=== PATIENT | female | born 1940 | race Caucasian/White ===

== ENCOUNTER 2017-08-12 00:14 | Emergency (ER) | payer MEDICARE ==
[2017-08-12 01:54] LABS: #Basophils 0.1 thou/uL (0.0-0.2); #Eosinphils 0.2 thou/uL (0.0-0.7); #Lymphocytes 2.1 thou/uL (1.20-3.40); #Monocytes 0.9 thou/uL (0.11-0.59); #Neutrophils 6.6 thou/uL (1.40-6.50); %Basophils 1.3 % (0.0-1.0); %Eosinophils 1.6 % (0.0-10.0); %Monocytes 8.8 % (0.0-10.0); %Neutrophils 67.3 % (42.0-75.0); Hemoglobin 10.9 g/dL (12.0-16.0); Mean Corpuscular HGB CONC 33.8 g/dL (32.0-36.0); Mean Corpuscular Hemoglobin 30.1 pg (27.0-31.0); Mean Corpuscular Volume 89.2 fl (81.0-99.0); Platelet Count 182 thou/uL (130-400); Red Blood Cell (RBC) Count 3.62 mill/uL (4.20-5.40); White Blood Cell (WBC) Count 9.8 thou/uL (4.8-10.8)
[2017-08-12 02:03] LABS: Anion Gap 16 mmol/L (10-20); BUN (Urea Nitrogen) 17 mg/dL (9.8-20.1); Calc. Creatinine Clearance 0 mL/min (70-130); Calcium 10.5 mg/dL (7.8-10.44); Carbon Dioxide 24 mmol/L (23-31); Chloride 100 mmol/L (98-107); Estimated GFR-MDRD 66; Glucose 97 mg/dL (83-110); Potassium 3.8 mmol/L (3.5-5.1); Sodium 136 mmol/L (136-145)
[2017-08-12 02:10] LABS: Troponin I 0.281 ng/mL (< 0.028)
--- NOTE | 2017-08-12 09:13 | RAD ---
PORTABLE AP CHEST XRAY: DATE: 08/12/17. HISTORY: Chest pain. COMPARISON: None available. FINDINGS: Dual-lead left subclavian cardiac pacemaking device is noted in place. Vascular calcifications in th e thoracic aorta. Cardiac silhouette and pulmonary vasculature are within normal limits. The lungs are clear. Osseous structures are intact, although there does appear to be a remote fracture involvi ng the posterior right 9th posterior rib. IMPRESSION: No acute cardiopulmonary process. POS: [id number]
== END 2017-08-12 03:47 | disposition left against medical advice (07) ==
LOC: MADERS 00:14
DX: R07.9 Chest pain, unspecified (principal); E78.5 Hyperlipidemia, unspecified; I48.91 Unspecified atrial fibrillation; I10 Essential (primary) hypertension; Z79.899 Other long term (current) drug therapy
CPT/HCPCS: 36415; 71045; 80048; 82553; 83880; 84484; 85025; 93005; 94760

== ENCOUNTER 2019-06-04 13:01 | Emergency (ER) | payer MEDICARE ==
[~2019-06-04 13:01] MED LIST: Sodium Chloride 0.9% 1,000 ML BAG ONE
--- NOTE | 2019-06-04 13:57 | CT ---
CT OF THE BRAIN WITHOUT CONTRAST: 06/04/19 COMPARISON: None. HISTORY: Altered mental status. TECHNIQUE: Multiple contiguous axial images were obtained in a CT of the brain without contrast. FINDINGS: There are scattered hypodensities in the subcortical and periventricular white matter, likely seconda ry to small vessel ischemic disease. No large confluent infarction is seen. There is no evidence of h ydrocephalus, intracranial hemorrhage or extra-axial fluid collections. The calvarium and overlying soft tissues are unremarkable. The visualized paranasal sinuses and masto id air cells are well aerated. IMPRESSION: No evidence of acute intracranial abnormality. POS: EAA
[2019-06-04 14:02] LABS: #Basophils 0.1 thou/uL (0.0-0.2); #Monocytes 1.6 thou/uL (0.11-0.59); #Neutrophils 13.3 thou/uL (1.40-6.50); %Basophils 0.7 % (0.0-1.0); %Eosinophils 0.2 % (0.0-10.0); %Monocytes 9.7 % (0.0-10.0); %Neutrophils 83.4 % (42.0-75.0); Hemoglobin 13.2 g/dL (12.0-16.0); Mean Corpuscular HGB CONC 31.9 g/dL (32.0-36.0); Mean Corpuscular Hemoglobin 29.3 pg (27.0-31.0); Mean Corpuscular Volume 91.8 fL (78.0-98.0); Mean Platelet Volume 7.5 fL (7.4-10.4); Platelet Count 288 thou/uL (130-400); RBC Distribution Width 12.2 % (11.5-14.5); Red Blood Cell (RBC) Count 4.53 mill/uL (4.20-5.40); White Blood Cell (WBC) Count 15.9 thou/uL (4.8-10.8)
[2019-06-04 14:24] LABS: ALT (SGPT) 36 U/L (8-55); AST (SGOT) 23 U/L (5-34); Albumin 4.1 g/dL (3.4-4.8); Alkaline Phosphatase 72 U/L (40-110); Anion Gap 22 mmol/L (10-20); BUN (Urea Nitrogen) 46 mg/dL (9.8-20.1); Bilirubin, Total 0.5 mg/dL (0.2-1.2); Calc. Creatinine Clearance 0 mL/min (70-130); Calcium 10.1 mg/dL (7.8-10.44); Carbon Dioxide 19 mmol/L (23-31); Chloride 110 mmol/L (98-107); Estimated GFR-MDRD 71; Globulin 3.9 g/dL (2.4-3.5); Glucose 103 mg/dL (83-110); Potassium 3.4 mmol/L (3.5-5.1); Sodium 148 mmol/L (136-145)
[2019-06-04 14:25] LABS: Bilirubin Moderate (Negative); Blood, Urine Moderate (Negative); Clarity Clear (Clear); Glucose, Urine (Dipstick) Negative (Negative); Leukocyte Negative (Negative); Nitrite Negative (Negative); Protein, Urine (Dipstick) > or equal to 300 mg/dL (Neg-Trace); Urobilinogen 0.2 mg/dL (Less than 2)
[2019-06-04 14:25] LABS: Acetaminophen Less than 6.0 mcg/mL (10.0-30.0); Alcohol Less than 10 mg/dL (Less than 10); CK (CPK) 164 U/L (29-168); Salicylate Less than 8.0 mg/dL (15.0-30.0)
--- NOTE | 2019-06-04 14:29 | RAD ---
SINGLE VIEW OF THE CHEST: 06/04/19 COMPARISON: 08/12/17 HISTORY: Altered mental status. FINDINGS: Single view of the chest shows a normal sized cardiomediastinal silhouette. The pacemaker is unchange d in position. Atherosclerotic calcifications are seen in the aorta. There is no evidence of consolid ation, mass or pleural effusion. Degenerative changes are seen in the spine. IMPRESSION: No evidence of acute cardiopulmonary disease. POS: EAA
[2019-06-04 14:34] LABS: Squamous Epithelial 0-3 HPF (0-3); WBC/HPF None Seen HPF (0-3)
[2019-06-04 14:35] LABS: Bacteria/HPF Rare-Few HPF (None Seen); Mucous/LPF Rare LPF (<2+)
[2019-06-04 14:36] LABS: Amphetamine Not Detected (NotDetected); Barbiturates Screen Not Detected (NotDetected); Benzodiazepine Screen Not Detected (NotDetected); Cocaine Metabolite Screen Not Detected (NotDetected); Medtox Control Line Valid? VALID (VALID); Methadone Not Detected (NotDetected); Methamphetamine Not Detected (NotDetected); Opiate Screen Not Detected (NotDetected); Oxycodone Screen Not Detected (NotDetected); Phencyclidine (PCP) Not Detected (NotDetected); THC/Cannabinoid Screen Not Detected (NotDetected); Tricyclic Screen Not Detected (NotDetected)
[2019-06-04] MEDS ORDERED: cefTRIAXone\\ROCEPHIN 1 GM VIAL ONE (14:46)
[2019-06-04] MEDS ORDERED: Adacel (T-DAP) 0.5 ML SYRINGE ONE (15:04)
[2019-06-04] MEDS ORDERED: Famotidine 20 MG TAB ONE (15:19)
--- NOTE | 2019-06-04 15:33 | RAD ---
Frontal radiograph pelvis: 06/04/2019 HISTORY: Altered mental status FINDINGS: No widening of the sacroiliac joints or pubic symphysis. The femoral heads project normally over the respective acetabulum. There is degenerative change at the pubic symphysis. The pelvic ring appears intact. No displaced fracture noted. IMPRESSION: No displaced pelvic fracture.
== END 2019-06-04 16:39 | disposition short-term general hospital (02) ==
LOC: MADERS 13:01
DX: R41.82 Altered mental status, unspecified (principal); I49.9 Cardiac arrhythmia, unspecified; I48.91 Unspecified atrial fibrillation; E78.5 Hyperlipidemia, unspecified; E78.00 Pure hypercholesterolemia, unspecified; I10 Essential (primary) hypertension
CPT/HCPCS: 51701; 70450; 71045; 72170; 80053; 80306; 80307; 81003; 81015; 82550; 83605; 83880; 84484; 85025; 87040; 87086; 90471; 90715; 93005; 94760; 96365; 96366; A4353; J0696; J7050

== ENCOUNTER 2019-12-04 14:27 | Emergency (ER) | payer MEDICARE ==
[2019-12-04] MEDS ORDERED: TETANUS AND DIPHTHERIA TOX/PF 0.5 ML DISP.SYRIN ONE (14:37)
[2019-12-04] MEDS ORDERED: Lidocaine 1% w/Epinephrine 1:100K 20 ML VIAL ONE (14:37)
--- NOTE | 2019-12-04 15:06 | CT ---
CT head noncontrast HISTORY: Fall. Injury. COMPARISON: 06/12/2019 FINDINGS: There is no evidence of acute intracranial hemorrhage or infarct. The ventricles are unrema rkable. Diffuse cortical atrophy and chronic ischemic small vessel disease are again demonstrated. There is no mass effect or shift of midline structures. Scalp injury is noted over the left frontal calvarium. IMPRESSION : No acute intracranial abnormalities are demonstrated.
--- NOTE | 2019-12-04 15:10 | CT ---
CT cervical spine noncontrast HISTORY: Injury. FINDINGS: Vertebral body heights are maintained. Mild rightward convex curvature. AP alignment is wit hin normal limits. Cervicothoracic junction is intact. There are degenerative changes throughout the cervical spine. No acute fracture or dislocation evident. Prominent calcification at the carotid arteries. IMPRESSION : No acute osseous abnormalities are demonstrated. Atherosclerosis.
[2019-12-04] MEDS ORDERED: Bacitracin 1 PK ONE (15:25)
== END 2019-12-04 18:50 ==
LOC: MADERS 14:27
DX: S01.81XA Laceration without foreign body of other part of head, initial encounter (principal); S50.10XA Contusion of unspecified forearm, initial encounter; E78.5 Hyperlipidemia, unspecified; E78.00 Pure hypercholesterolemia, unspecified; I10 Essential (primary) hypertension; F03.90 Unspecified dementia, unspecified severity, without behavioral disturbance, psychotic disturbance, mood disturbance, and anxiety; I48.91 Unspecified atrial fibrillation; W19.XXXA Unspecified fall, initial encounter
CPT/HCPCS: 12011; 70450; 72125; 90471; 90714